=== PATIENT | female | born 1955 | race Caucasian/White ===

== ENCOUNTER 2021-01-15 10:54 | Outpatient (REF) | payer OTHER, SELFPAY ==
--- NOTE | ~2021-01-15 | XR_ITS ---
EXAMINATION: XR HAND, RIGHT CLINICAL INFORMATION: Pain in the right hand COMPARISON: None TECHNIQUE: PA, lateral, and oblique views of the right hand. FINDINGS: The bones and soft tissues are normal. No fracture. Alignment is anatomic. Joint spaces are maintained. No erosions or soft tissue calcifications. XR/XR hand RT min 3V IMPRESSION: Normal right hand.
--- NOTE | ~2021-01-15 | XR_ITS ---
EXAMINATION: XR HAND, LEFT CLINICAL INFORMATION: Pain in the right hand COMPARISON: None TECHNIQUE: PA, lateral, and oblique views of the left hand. FINDINGS: There is mild joint narrowing and minor osteosclerosis of the articular surface of bone at the first metacarpal carpal joint. Mild joint narrowing between navicular bone and the multangular bones. Minor periarticular spurring at the IP joint of the thumb. The joint spaces throughout the remainder of the hand are normal. No bone erosions. No soft tissue calcification. XR/XR hand LT min 3V IMPRESSION: Mild degenerative change of the hand and wrist.
--- NOTE | ~2021-01-15 | XR_ITS ---
EXAMINATION: XR KNEE, LEFT CLINICAL INFORMATION: Psoriasis COMPARISON: None TECHNIQUE: Four views of the left knee. FINDINGS: Minor degenerative spurring of the tibial spines and the distal femur at the intercondylar notch. Mild joint narrowing of the medial femoral tibial joint with small marginal bone spur of the femur and tibia at the joint margin. Minor spurring of the patella the patellofemoral joint. No bone erosion. No chondrocalcinosis. No joint effusion. XR/XR knee LT 3V IMPRESSION: Mild degenerative joint disease of the knee.
--- NOTE | ~2021-01-15 | XR_ITS ---
EXAMINATION: XR KNEE, RIGHT CLINICAL INFORMATION: Psoriasis. COMPARISON: None TECHNIQUE: Four views of the right knee. FINDINGS: Minor degenerative spurring of the Pellet the patellofemoral joint. Small spur of the medial and lateral tibial spine and of the femur at the intercondylar notch. Minimal spur of the femur at the articular margin of the medial femoral tibial joint. Slight narrowing of the medial femoral tibial joint. No bone erosions. No joint effusion. No chondrocalcinosis. XR/XR knee RT 3V IMPRESSION: Mild degenerative change of the knee joint.
[2021-01-15 13:04] LABS: MANUAL DIFF FLAG NO
[2021-01-15 13:09] LABS: Basophils Absolute Auto 0.1 X10*3/uL (0.0-0.2); Basophils Percent Auto 0.8 % (0-2); Eosinophils Absolute Auto 0.3 X10*3/uL (0.0-0.4); Eosinophils Percent Auto 4.1 % (0-4); Hematocrit 41.9 % (37-47); Hemoglobin 13.5 g/dl (12.0-16.0); Imm Gran Abs Auto 0.03 X10*3/uL (0.00-0.03); Imm Gran Pct Auto 0.4 % (0.0-0.4); Lymphocytes Absolute Auto 1.5 X10*3/uL (1.2-4.9); Lymphocytes Percent Auto 20.6 % (20-40); Mean Corpuscular HGB Conc 32.2 g/dl (31.0-35.0); Mean Corpuscular Hemoglobin 31.1 pg (27.0-33.0); Mean Corpuscular Volume 96.5 fL (80-98); Mean Platelet Volume 10.6 fL (9.4-12.3); Monocytes Absolute Auto 0.6 X10*3/uL (0.1-1.2); Neutrophils Absolute Auto 4.9 X10*3/uL (2.0-8.3); Neutrophils Percent Auto 66.1 % (45-73); Platelet Count 368 X10*3/uL (160-400); Red Blood Count 4.34 X10*6/uL (4.20-5.50); Red Cell Distribution Width 13.4 % (11.0-16.0); White Blood Count 7.3 X10*3/uL (4.8-10.8)
[2021-01-15 13:31] LABS: Alanine Aminotransferase 18 U/L (0-31); Albumin Level 4.4 g/dL (3.5-5.0); Alkaline Phosphatase 79 U/L (39-117); Anion Gap 13 (12-20); Aspartate Amino Transferase 18 U/L (5-31); Bilirubin Total 0.2 mg/dL (0.0-1.0); Blood Urea Nitrogen 4 mg/dL (9-16); C Reactive Protein 0.48 mg/dL (< or = 0.50); Calcium 9.3 mg/dL (8.4-10.2); Carbon Dioxide 25 mmol/L (22-29); Chloride 107 mmol/L (96-108); Estimated Glomerular Filt Rate > 60; Glucose Random 126 mg/dL (60-115); Potassium 4.4 mmol/L (3.3-5.1); Rheumatoid Factor < 15.0 IU/mL (<15.0); Sodium 141 mmol/L (135-145); Total Protein 7.2 g/dL (6.5-8.0)
[2021-01-15 14:34] LABS: Erythrocyte Sedimentation Rate 3 MM/HR (0-20)
[2021-01-18 13:15] LABS: Cyclic Citrullinated Peptide <16 UNITS
== END 2021-01-15 10:55 | disposition home or self-care (01) ==
LOC: HO.LAB 10:54
PROVIDERS: PCP Internal Medicine; Visit Provider Student in an Organized Health Care Education/Training Program
DX: M79.641 Pain in right hand (principal); M79.642 Pain in left hand; L40.9 Psoriasis, unspecified
CPT/HCPCS: 36415; 73130; 73562; 80053; 85025; 85652; 86140; 86200; 86431; 99202

== ENCOUNTER → 2021-02-03 10:53 | Outpatient (BNVA) | payer OTHER, SELFPAY | PROVIDERS: PCP Internal Medicine; Visit Provider Student in an Organized Health Care Education/Training Program | DX: M79.641 Pain in right hand (principal); M79.642 Pain in left hand; L40.9 Psoriasis, unspecified; F17.210 Nicotine dependence, cigarettes, uncomplicated; Z88.2 Allergy status to sulfonamides; Z88.8 Allergy status to other drugs, medicaments and biological substances; Z79.899 Other long term (current) drug therapy | CPT/HCPCS: 99212 ==

== ENCOUNTER 2023-04-14 10:56 | Outpatient (AMB) | payer MEDICARE, MEDICAID, SELFPAY ==
--- NOTE | 2023-04-14 10:58 | A.OFFVIS_ITS ---
Intake Vital Signs 04/14/23 10:59 Height 5 ft 3.98 in Weight 235 lb 3.732 oz BMI 40.4 BP 132/74 Blood Pressure Location Lt brachial Position Sitting Pulse 80 Pulse Source Pulse Oximeter Temp 97.3 F Temp Source Skin Pulse Oximetry (%) 95 Intake Visit Reasons: OA Intake Note: Patient presents today to follow up on OA. Last seen- 02/03/21 Kian. Reports cortisone injection left wrist with orthopedic Dr Arvin Ya back in September; follows with [facility] for knees, might need surgery.. States she has arthritis everywhere and needs help. 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 She was last seen twice in January 2021. Patient reports a long standing history of joint pain located in her hands, knees, and back. Reports bumps on her fingers that come and go and can become painful and red . She feels like her knees can become swollen at times. Her knee pain is generally worse with activity and improves with rest. States that she was previously seen at [facility] and received cortisone injections in her knees. She denies any history of dactylitis, uveitis, or IBD but was diagnosed 3 years ago with Celiac and stays off Gluten. She has a strong family history of psoriasis (dad on his shins and sister on the plantar of both feet) and cardiac disease but denies any known history of psoriatic arthritis or Rheumatoid Arthritis. Per patient she is currently being treated with Skyrizi for Psoriasis, has had her loading doses plus one. She feels this is helping her psoriatic patches. Additionally, she reports that she was tried on Cosentyx for two months and received the last injection 01/07/2023, it did not help with her psoriasis. She denies any side effects from these medications. She has a history of Cervical Cancer and had a hysterectomy at 24 yo. She smokes 6 to 7 cigarettes per day. [facility] Medical History (Updated 04/18/23 @ 09:32 by [facility] Primary osteoarthritis involving multiple joints Psoriatic arthritis Psoriasis Social History Household Members Other:: ALONE Housing: Apartment Housing Other:: SENIOR HOUSING Alcohol intake: never Patient Tobacco Use Status: Current everyday Tobacco user Tobacco use type: Cigarette Cigarettes Per Day: 6 Years Smoked: 50 service: No Current occupational status: disabled Review of Systems Const All systems reviewed & are unremarkable except as noted in HPI and below Physical Exam Vital Signs: Last Vital Signs Temp 97.3 F 04/14/23 10:59 Pulse 80 04/14/23 10:59 BP 132/74 04/14/23 10:59 Pulse Ox 95 04/14/23 10:59 BMI result Body Mass Index 40.4 APPEARANCE: Patient in no acute distress EYES no redness, pupils equal and reactive to light, eyelids normal EARS:? External ear normal, canal clear and tympanic membrane normal. NOSE/SINUS:? Airflow through both nares, no nasal discharge, no bleeding THROAT:? Oral mucosa moist, no ulcerations NECK:? No thyromegaly or masses, no adenopathy, trachea midline. HEART:? Regular rhythm, S1-S2 heard, no murmurs, rubs or gallops. LUNG:? Clear to percussion and auscultation ABD:? Normal bowel sounds, no organomegaly, masses or tenderness. EXTREMITIES:? No edema, no calf tenderness, normal peripheral pulses. NEURO:? Oriented and alert x3.? No focal weakness.? Reflexes symmetric.? Gait normal. SKIN:? small dry patches to bilateral elbows. Palmar Postular PsO to right palm. PsO patch to sacrum. No objective signs of Raynaud's phenomenon. JOINT EXAM: Cervical Spine:.? Full range of motion without pain; no tenderness. Thoracic Spine:.? No scoliosis.? No tenderness on palpation. Lumbar Spine:.? Alignment normal.? Full range of motion without pain, no tenderness. Chest Wall:.? No tenderness, swelling, increased warmth or erythema. Hands:.? Normal pain-free range of motion, with tenderness and to palpation and mild erythema to bilateral 2nd and 3rd DIPs; trace swelling and tenderness to CMC joints left greater than right. 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 Wrists:.? Normal pain-free range of motion without tenderness, swelling, increased warmth or erythema. Elbows:. Normal pain-free range of motion with tenderness bilateral lateral epicondyle but no swelling, increased warmth or erythema. Shoulders:.?? Full range of motion with mild pain but no tenderness, weakness, swelling, increased warmth or erythema. Hips:.?Decreased range of motion with mild pain in groin. Hip bursa:.? Mild Tenderness to right side. Knees:.?? Normal pain-free range of motion without tenderness, swelling, increased warmth or erythema.? There is no effusion or crepitation Ankles:.? Normal pain-free range of motion without tenderness, swelling, increased warmth or erythema. Feet:.? Normal pain-free range of motion without tenderness, swelling, increased warmth or erythema. Tender points:? No tenderness to digital palpation at the occiput, trapezius, second rib, lateral epicondyle, knees, greater trochanter and gluteal area bilaterally. Results Reviewed Results Reviewed: Ordering Physician: Jenni Langston MD Date of Service: 01/15/21 Procedure(s): XR knee LT 3V Accession Number(s): [id number] cc: Jenni Langston MD~ EXAMINATION: XR KNEE, LEFT CLINICAL INFORMATION: Psoriasis COMPARISON: None TECHNIQUE: Four views of the left knee. FINDINGS: Minor degenerative spurring of the tibial spines and the distal femur at the intercondylar notch. Mild joint narrowing of the medial femoral tibial joint with small marginal bone spur of the femur and tibia at the joint margin. Minor spurring of the patella the patellofemoral joint. No bone erosion. No chondrocalcinosis. No joint effusion. XR/XR knee LT 3V IMPRESSION: Mild degenerative joint disease of the knee. TECHNIQUE: Four views of the right knee. FINDINGS: Minor degenerative spurring of the Pellet the patellofemoral joint. Small spur of the medial and lateral tibial spine and of the femur at the intercondylar notch. Minimal spur of the femur at the articular margin of the medial femoral tibial joint. Slight narrowing of the medial femoral tibial joint. No bone erosions. No joint effusion. No chondrocalcinosis. XR/XR knee RT 3V IMPRESSION: Mild degenerative change of the knee joint. EXAMINATION: XR HAND, RIGHT CLINICAL INFORMATION: Pain in the right hand COMPARISON: None TECHNIQUE: PA, lateral, and oblique views of the right hand. FINDINGS: The bones and soft tissues are normal. No fracture. Alignment is anatomic. Joint spaces are maintained. No erosions or soft tissue calcifications. XR/XR hand RT min 3V IMPRESSION: Normal right hand. TECHNIQUE: PA, lateral, and oblique views of the left hand. FINDINGS: There is mild joint narrowing and minor osteosclerosis of the articular surface of bone at the first metacarpal carpal joint. Mild joint narrowing between navicular bone and the multangular bones. Minor periarticular spurring at the IP joint of the thumb. The joint spaces throughout the remainder of the hand are normal. No bone erosions. No soft tissue calcification. XR/XR hand LT min 3V IMPRESSION: Mild degenerative change of the hand and wrist. Laboratory Tests 01/15/21 11:56 ESR 3 Rheumatoid Factor < 15.0 Cycl Citrul Peptide IgG <16 Assessment & Plan Assessment & Plan (1) Psoriatic arthritis: Code(s): L40.50 - Arthropathic psoriasis, unspecified (2) Bilateral hand pain: Code(s): M79.641 - Pain in right hand; M79.642 - Pain in left hand (3) Psoriasis: Code(s): L40.9 - Psoriasis, unspecified (4) Primary osteoarthritis involving multiple joints: Code(s): M15.9 - Polyosteoarthritis, unspecified (5) Raynaud phenomenon: Code(s): I73.00 - Raynaud's syndrome without gangrene Qualifiers: Raynaud?s-associated gangrene presence: without gangrene Qualified Code(s): I73.00 - Raynaud's syndrome without gangrene (6) Nicotine dependence with current use: Code(s): F17.200 - Nicotine dependence, unspecified, uncomplicated Plan #PsA/Hand Pain: 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 She also has palmar pustular psoriasis evident in her right hand and says that it never happens in her left. She has tenderness to some hand DIP joints, endorses tenderness to Achilles and bilateral lateral epicondyles on exam. Given these, findings, I can reasonably assumed that this is psoriatic arthritis (PsA) as PsA has a propensity for enthesopathy. I have also reviewed 3 MRIs dated back in 2000 of her cervical spine and right wrist. These were done because patient was experiencing numbness from the elbow to her hand. The MRI of the cervical spine was unremarkable except for mild DDD and MRI on the right wrist showed a healed fracture. Though no erosions or other indications of psoriatic arthritis was appreciated on the hand images, there was mild osteoarthritis. Additionally, x-ray images done in 2000 of her hands and bilateral knees showed mild osteoarthritis for all joints. Given that the patient is on Skyrizi, I cannot start another biologic. I will prescribe a course of prednisone for immediate relief and consider starting an oral DMARD, leflunomide. Patient will obtain updated labs CBC CMP and acute phase reactants, since last set of labs was January 2021. #Psoriasis(PsO). She is followed by Dermatology and is treated with Skyrizi for 2 months. She also uses betamethasone dipropionate 0.05% topically. She has used clobetasol in the past but this was not effective. Sometimes prednisone can exacerbate psoriasis, patient knows to call the office if these happens. #OA/Hand Pain/Knee Pain: Discussed with patient that an element of her hand and Knee pain can be related to OA. She has moderate Heberdens to her DIP joint that are occasionally tender with erythema which can also be seen in OA. She currently takes acetaminophen 500 mg p.r.n. will obtain updated x-rays of her hands. #Raynaud's vs Vascular compromise: When asked about having experiences of Raynaud's patient showed me a picture of her right hand that could be evidence of Raynaud's and she says her hand occasionally gets like that. That picture was taken in November 2022. Patient does not remember the circumstances surrounding why her fingers changed color but she explains that there are times when her hands are really really cold. I discussed with patient that Raynaud's can be induced by the cold weather, extreme temperature changes or stress. We will continue to monitor and patient knows to document any recurrence. #Nicotine Dependence: I have discussed at length with patient how smoking can compromise her healing and can be a complication in treating inflammatory arthritis. She has agreed and shared about prior attempt to stop smoking. She will discuss smoking cessation options with her primary care provider. Orders: Orders C Reactive Protein 04/14/23 L40.9 - Psoriasis, unspecified, M79.641 - Pain in right hand, M79.642 - Pain in left hand Complete Blood Count Auto Diff 04/14/23 L40.9 - Psoriasis, unspecified, M79.641 - Pain in right hand, M79.642 - Pain in left hand XR hand LT min 3V 04/14/23 M79.641 - Pain in right hand, M79.642 - Pain in left hand JAMIE Reflex Titer and Pattern 04/14/23 L40.9 - Psoriasis, unspecified, M79.641 - Pain in right hand, M79.642 - Pain in left hand Comprehensive Met. Panel 04/14/23 L40.9 - Psoriasis, unspecified, M79.641 - Pain in right hand, M79.642 - Pain in left hand Erythrocyte Sedimentation Rate 04/14/23 L40.9 - Psoriasis, unspecified, M79.641 - Pain in right hand, M79.642 - Pain in left hand XR hand RT min 3V 04/14/23 L40.9 - Psoriasis, unspecified, M79.641 - Pain in right hand, M79.642 - Pain in left hand Coding Level of Care Code Est Pt Level 4 (82328) Diagnoses Psoriatic arthritis L40.50 Bilateral hand pain M79.641; M79.642 Psoriasis L40.9 Primary osteoarthritis involving multiple joints M15.9 Raynaud's phenomenon without gangrene I73.00 Raynaud?s-associated gangrene presence: without gangrene Nicotine dependence with current use F17.200
[2023-04-14 10:59] VITALS: BP 132/74; PULSE 80; TEMP 36.3; O2SAT 95; BMI 40.4
== END 2023-04-14 12:06 | disposition home or self-care (01) ==
PROVIDERS: PCP Internal Medicine; Visit Provider Nurse Practitioner Family
DX: L40.50 Arthropathic psoriasis, unspecified (principal); M79.641 Pain in right hand; M79.642 Pain in left hand; M15.9 Polyosteoarthritis, unspecified; I73.00 Raynaud's syndrome without gangrene
CPT/HCPCS: 99214

== ENCOUNTER → 2023-04-14 10:56 | Outpatient (BNVA) | payer MEDICARE, MEDICAID, SELFPAY | PROVIDERS: PCP Internal Medicine; Visit Provider Nurse Practitioner Family | DX: L40.50 Arthropathic psoriasis, unspecified (principal); L40.9 Psoriasis, unspecified; M79.641 Pain in right hand; M79.642 Pain in left hand; M15.9 Polyosteoarthritis, unspecified; I73.00 Raynaud's syndrome without gangrene; F17.210 Nicotine dependence, cigarettes, uncomplicated | CPT/HCPCS: 99212 ==